=== PATIENT | female | born 1955 | race Caucasian/White ===

== ENCOUNTER 2021-12-11 21:05 | Emergency (ER) | payer MEDICARE, BC ==
[~2021-12-11] VITALS: Ht 162.5 cm; Wt 64.4 kg
[~2021-12-11 21:05] MED LIST: COUMADIN6 M2 PO; EFFIENT10 M1 PO; EFFIENT5 MG PO; HYDR25T PO; VICODIN 500 MG-1 TAB PO; hypertension
== END 2021-12-12 01:21 | disposition home or self-care (01) ==
LOC: ED 21:05
DX: S42.201A Unspecified fracture of upper end of right humerus, initial encounter for closed fracture (principal); M25.531 Pain in right wrist; Z88.2 Allergy status to sulfonamides; Z88.8 Allergy status to other drugs, medicaments and biological substances; Z79.899 Other long term (current) drug therapy; Z79.01 Long term (current) use of anticoagulants; Z98.890 Other specified postprocedural states; Z90.89 Acquired absence of other organs; W01.0XXA Fall on same level from slipping, tripping and stumbling without subsequent striking against object, initial encounter; Y93.89 Activity, other specified; Y92.89 Other specified places as the place of occurrence of the external cause; Y99.8 Other external cause status